=== PATIENT | male | born 1950 | race Caucasian/White ===

== ENCOUNTER → 2019-01-31 | Outpatient (CLI) | payer MEDICARE, BC | END | disposition home or self-care (01) | LOC: CFH 14:14 | PROVIDERS: ATTEND Internal Medicine Cardiovascular Disease | DX: I35.0 Nonrheumatic aortic (valve) stenosis (principal); I10 Essential (primary) hypertension; C61 Malignant neoplasm of prostate; Z87.891 Personal history of nicotine dependence | CPT/HCPCS: 93306 ==